=== PATIENT | male | born 1955 | race Caucasian/White ===

== ENCOUNTER → 2023-08-29 13:10 | Outpatient (REF) | payer MEDICARE, SELFPAY | LOC: MRI 3T 13:10 | PROVIDERS: ATTENDING PHYSICIAN Urology; FAMILY PHYSICIAN Family Medicine | DX: R31.0 Gross hematuria (principal); N40.2 Nodular prostate without lower urinary tract symptoms | CPT/HCPCS: 72197; A9575 ==

== ENCOUNTER → 2024-06-11 08:23 | Outpatient (REF) | payer MEDICARE, SELFPAY | LOC: RAD 08:23 | PROVIDERS: ATTENDING PHYSICIAN Urology; FAMILY PHYSICIAN Family Medicine | DX: R31.0 Gross hematuria (principal); N28.1 Cyst of kidney, acquired | CPT/HCPCS: 74170; Q9967 ==

== ENCOUNTER → 2025-06-30 15:20 | Outpatient (REF) | payer MEDICARE, SELFPAY | LOC: RAD 15:20 | PROVIDERS: ATTENDING PHYSICIAN Urology; FAMILY PHYSICIAN Family Medicine | DX: R31.0 Gross hematuria (principal); N28.1 Cyst of kidney, acquired | CPT/HCPCS: 74170; Q9967 ==